=== PATIENT | female | born 1950 | race Caucasian/White ===

== ENCOUNTER 2018-02-28 08:47 | Emergency (ER) | payer OTHER ==
[~2018-02-28] VITALS: Ht 154.9 cm; Wt 59.0 kg
[2018-02-28 08:53] VITALS: Ht 154.9 cm; Wt 59.0 kg
[2018-02-28 12:21] VITALS: BP 130/70
== END 2018-02-28 12:22 | disposition home or self-care (01) ==
LOC: ED 08:47
DX: S81.812A Laceration without foreign body, left lower leg, initial encounter (principal); F32.9 Major depressive disorder, single episode, unspecified; Z91.041 Radiographic dye allergy status; W26.8XXA Contact with other sharp object(s), not elsewhere classified, initial encounter; Y93.89 Activity, other specified; Y92.89 Other specified places as the place of occurrence of the external cause; Y99.8 Other external cause status
CPT/HCPCS: 90715; J2001; Q0092

== ENCOUNTER 2018-03-02 08:18 | Emergency (ER) | payer OTHER ==
[~2018-03-02] VITALS: Ht 154.9 cm; Wt 59.0 kg
[2018-03-02 08:21] VITALS: Ht 154.9 cm; Wt 59.0 kg
[2018-03-02 08:50] VITALS: BP 128/74
== END 2018-03-02 08:50 | disposition home or self-care (01) ==
LOC: ED 08:18
DX: S81.812D Laceration without foreign body, left lower leg, subsequent encounter (principal); F32.9 Major depressive disorder, single episode, unspecified; Z91.041 Radiographic dye allergy status; X58.XXXD Exposure to other specified factors, subsequent encounter

== ENCOUNTER 2018-03-09 09:29 | Emergency (ER) | payer OTHER ==
[~2018-03-09] VITALS: Ht 154.9 cm; Wt 61.0 kg
[2018-03-09 09:38] VITALS: Ht 154.9 cm; Wt 61.0 kg
[2018-03-09 10:13] VITALS: BP 112/60
== END 2018-03-09 10:13 | disposition home or self-care (01) ==
LOC: ED 09:29
DX: S81.812D Laceration without foreign body, left lower leg, subsequent encounter (principal); E03.9 Hypothyroidism, unspecified; F32.9 Major depressive disorder, single episode, unspecified; Z91.041 Radiographic dye allergy status; X58.XXXD Exposure to other specified factors, subsequent encounter

== ENCOUNTER 2018-03-11 13:52 | Emergency (ER) | payer OTHER ==
[~2018-03-11] VITALS: Ht 154.9 cm; Wt 64.0 kg
[2018-03-11 13:55] VITALS: Ht 154.9 cm; Wt 64.0 kg
[2018-03-11 14:43] VITALS: BP 129/71
== END 2018-03-11 14:43 | disposition home or self-care (01) ==
LOC: ED 13:52
DX: S81.812D Laceration without foreign body, left lower leg, subsequent encounter (principal); X58.XXXD Exposure to other specified factors, subsequent encounter

== ENCOUNTER 2018-03-14 08:55 | Emergency (ER) | payer OTHER ==
[~2018-03-14] VITALS: Ht 154.9 cm; Wt 62.1 kg
[2018-03-14 09:00] VITALS: BP 118/71; Ht 154.9 cm; Wt 62.1 kg
== END 2018-03-14 10:07 | disposition home or self-care (01) ==
LOC: ED 08:55
DX: S81.812D Laceration without foreign body, left lower leg, subsequent encounter (principal); E03.9 Hypothyroidism, unspecified; F32.9 Major depressive disorder, single episode, unspecified; Z88.8 Allergy status to other drugs, medicaments and biological substances; X58.XXXD Exposure to other specified factors, subsequent encounter